=== PATIENT | male | born 1950 | race African-American/Black ===

== ENCOUNTER 2017-10-08 20:31 | Emergency (ER) | payer MEDICARE ==
[2017-10-08] MEDS: MIDAZOLAM HCL/PF 5 MG/5 ML VIAL. IM (22:03)
== END 2017-10-08 23:47 | disposition home or self-care (01) ==
LOC: ER 20:31
DX: F10.129 Alcohol abuse with intoxication, unspecified (principal); R11.10 Vomiting, unspecified
CPT/HCPCS: 93005; 96372; 99284-25; J2250